=== PATIENT | male | born 1990 | race Two or more races ===

== ENCOUNTER 2023-09-13 12:13 | Emergency (ER) | payer MEDICAID, OTHER ==
[~2023-09-13] VITALS: Ht 180.3 cm; Wt 175.0 kg
[2023-09-13 13:25] VITALS: PULSE 86; O2SAT 100
[2023-09-13 19:30] VITALS: PULSE 80; RESP 20; O2SAT 100
[2023-09-13 21:33] VITALS: BP 104/58; PULSE 95; RESP 18; TEMP 98.1; O2SAT 97
== END 2023-09-13 21:45 | disposition short-term general hospital (02) ==
LOC: EDBD 12:13 → ER 12:33
DX: K74.60 Unspecified cirrhosis of liver (principal); R53.1 Weakness